=== PATIENT | female | born 1990 | race Caucasian/White ===

== ENCOUNTER 2017-01-10 12:51 | Outpatient (CLI) | payer OTHER ==
[~2017-01-10] VITALS: Ht 170.2 cm; Wt 117.0 kg
[~2017-01-10 12:51] MED LIST: METHADONE10 MG PO; NOHOMEMEDS
[2017-01-10 13:20] VITALS: BP 122/78
[2017-01-10] MEDS ORDERED: METHADONE 22 MG/1 ML PO (13:45)
[2017-01-10 15:32] LABS: ADD MIUA? YES; BILIRUBIN NEGATIVE; BLOOD NEGATIVE; GLUCOSE (STRIP) NEGATIVE; KETONES NEGATIVE; LEUKOCYTES NEGATIVE; NITRITE NEGATIVE; PROTEIN (STRIP) NEGATIVE; SPECIFIC GRAVITY 1.024 (1.000-1.030); UROBILINOGEN 0.2 MG/DL (0.2-1.0)
[2017-01-10 16:11] LABS: BACTERIA NONE SEEN /HPF; CALCIUM OXALATE CRYSTALS 3+ /HPF; EPITHELIAL CELLS RARE /HPF; MUCUS 1+ /LPF; RED BLOOD CELLS 0-5 /HPF (0-5); UCUL ADDED? NO; WHITE BLOOD CELLS 0-5 /HPF (0-5)
[2017-01-10 16:12] LABS: COLOR DK YELLOW ((YELLOW))
[2017-01-11] MEDS ORDERED: PRENATAL TABLE1 EAC3 PO (13:58)
== END 2017-01-10 17:45 | disposition home or self-care (01) ==
LOC: LDRP-OP 12:51 → 2WEST 12:52
PROVIDERS: Midwife
DX: O26.873 Cervical shortening, third trimester (principal); Z3A.32 32 weeks gestation of pregnancy
CPT/HCPCS: 59025; 81003; 82731; G0378; J0702

== ENCOUNTER 2017-01-11 12:57 | Outpatient (CLI) | payer OTHER ==
[~2017-01-11] VITALS: Ht 170.2 cm; Wt 117.3 kg
[~2017-01-11 12:57] MED LIST changes: +METHADONE 22 MG/1 ML PO
[2017-01-11 13:38] VITALS: BP 139/88
[2017-01-11] MEDS ORDERED: PRENATAL TABLE1 EAC3 PO (13:58)
== END 2017-01-11 14:50 | disposition home or self-care (01) ==
LOC: LDRP-OP 12:57 → 2WEST 12:58 → LDRP-OP 04-05 17:53
DX: O26.873 Cervical shortening, third trimester (principal); O99.323 Drug use complicating pregnancy, third trimester; F11.20 Opioid dependence, uncomplicated; O99.333 Smoking (tobacco) complicating pregnancy, third trimester; F17.200 Nicotine dependence, unspecified, uncomplicated; Z3A.32 32 weeks gestation of pregnancy
CPT/HCPCS: 59025; G0378

== ENCOUNTER 2017-01-25 12:12 | Outpatient (CLI) | payer OTHER ==
[~2017-01-25] VITALS: Ht 170.2 cm; Wt 117.0 kg
[~2017-01-25 12:12] MED LIST changes: +PRENATAL TABLE1 EAC3 PO
[2017-01-25 12:43] VITALS: BP 127/74
[2017-01-25 13:14] VITALS: BP 117/71
[2017-01-25 13:44] VITALS: BP 124/74
[2017-01-25 14:14] VITALS: BP 114/69
[2017-01-25 15:07] LABS: EOSINOPHIL (%) 2.1 % (0-5); EOSINOPHIL COUNT 0.2 K/uL (0-0.3); HEMATOCRIT 38.2 % (36.0-46.0); IMMATURE GRANULOCYTE (%) 0.7 % (0.0-0.7); IMMATURE GRANULOCYTE COUNT 0.1 K/uL; INSTRUMENT ABS NEUTROPHIL CT 7.5 K/uL; LYMPHOCYTE COUNT 2.1 K/uL (1.0-2.8); MCH 30.4 PG (29.0-34.0); MCHC 33.8 G/DL (30.0-36.0); MCV 90.1 FL (83-99); MEAN PLAT.VOLUME 10.1 uM^3 (9.5-12.4); MONOCYTE (%) 7.2 % (3-12); MONOCYTE COUNT 0.8 K/uL (0-0.8); NEUTROPHIL (%) 69.7 % (45-76); NEUTROPHIL COUNT 7.5 K/uL (1.8-6.4); PLATELET COUNT 173 K/uL (156-360); RBC DIS.WIDTH-SD 42.3 % (39-53); RED BLOOD COUNT 4.24 M/uL (3.80-5.20); WHITE BLOOD COUNT 10.7 K/uL (4.1-10.2)
[2017-01-25 15:25] LABS: ALKALINE PHOSPHATASE 137 IU/L (3-129); ANION GAP 8 MEQ/L (2-14); CHLORIDE 106 MEQ/L (99-109); GFR ESTIMATE (CALCULATED) > 59 mL/min/; GLUCOSE 139 mg/dL (70-99); POTASSIUM 3.6 MEQ/L (3.7-5.4); SAMPLE HEMOLYSIS CHECK 0; SAMPLE ICTERIC CHECK 0; SAMPLE LIPEMIA CHECK 0; SODIUM 137 MEQ/L (136-147); TOTAL BILIRUBIN 0.3 MG/DL (0.0-1.0); UREA NITROGEN (BUN) 4 mg/dL (9-23)
[2017-01-25 15:58] LABS: UR CREATININE CONCENTRATION 47.2 MG/DL
[2017-01-25 16:30] VITALS: BP 114/65
== END 2017-01-25 17:35 | disposition home or self-care (01) ==
LOC: LDRP-OP 12:12 → 2WEST 12:13 → LDRP-OP 04-05 15:10
PROVIDERS: Nurse Practitioner
DX: O26.613 Liver and biliary tract disorders in pregnancy, third trimester (principal); Z3A.32 32 weeks gestation of pregnancy; R79.89 Other specified abnormal findings of blood chemistry; O99.323 Drug use complicating pregnancy, third trimester; F11.90 Opioid use, unspecified, uncomplicated
CPT/HCPCS: 59025; 80053; 82570; 84156; 85025; 86803; G0378

== ENCOUNTER 2017-02-10 07:10 | Inpatient (IN) | payer OTHER ==
[~2017-02-10] VITALS: Ht 170.2 cm; Wt 117.3 kg
[2017-02-10] VITALS (31 sets, daily range): BP systolic 111–161; BP diastolic 62–90
[2017-02-10 09:40] LABS: EOSINOPHIL (%) 0.5 % (0-5); EOSINOPHIL COUNT 0.1 K/uL (0-0.3); IMMATURE GRANULOCYTE (%) 1.1 % (0.0-0.7); IMMATURE GRANULOCYTE COUNT 0.2 K/uL; INSTRUMENT ABS NEUTROPHIL CT 11.4 K/uL; LYMPHOCYTE COUNT 1.7 K/uL (1.0-2.8); MCH 30.4 PG (29.0-34.0); MCHC 33.6 G/DL (30.0-36.0); MCV 90.3 FL (83-99); MEAN PLAT.VOLUME 10.3 uM^3 (9.5-12.4); MONOCYTE (%) 5.8 % (3-12); MONOCYTE COUNT 0.8 K/uL (0-0.8); NEUTROPHIL (%) 80.1 % (45-76); NEUTROPHIL COUNT 11.4 K/uL (1.8-6.4); RBC DIS.WIDTH-SD 42.8 % (39-53); RED BLOOD COUNT 4.87 M/uL (3.80-5.20)
[2017-02-10 09:54] LABS: PLATELET COUNT 239 K/uL (156-360); WHITE BLOOD COUNT 14.2 K/uL (4.1-10.2)
[2017-02-10 12:20] LABS: AMPHETAMINES QUANT VALUE 0 NG/ML; BARBITUATES QUANT VALUE 0 NG/ML; BENZODIAZEPINES QUANT VALUE 0 NG/ML; BENZODIAZEPINES, URINE SCREEN Negative (200 ng/mL); OPIATES QUANTITATIVE VALUE 0 NG/ML; PHENCYCLIDINE QUANT VALUE 0 NG/ML
[2017-02-10] MEDS ORDERED: IBUPROFEN800 MG PO (21:14)
[2017-02-11 03:41] VITALS: BP 143/88
[2017-02-11 08:00] LABS: EOSINOPHIL (%) 0.6 % (0-5); EOSINOPHIL COUNT 0.1 K/uL (0-0.3); HEMATOCRIT 32.6 % (36.0-46.0); IMMATURE GRANULOCYTE (%) 0.6 % (0.0-0.7); IMMATURE GRANULOCYTE COUNT 0.1 K/uL; INSTRUMENT ABS NEUTROPHIL CT 8.8 K/uL; LYMPHOCYTE COUNT 2.7 K/uL (1.0-2.8); MCH 30.9 PG (29.0-34.0); MCHC 33.4 G/DL (30.0-36.0); MCV 92.4 FL (83-99); MEAN PLAT.VOLUME 10.9 uM^3 (9.5-12.4); MONOCYTE (%) 9.8 % (3-12); MONOCYTE COUNT 1.3 K/uL (0-0.8); NEUTROPHIL (%) 67.8 % (45-76); NEUTROPHIL COUNT 8.8 K/uL (1.8-6.4); PLATELET COUNT 210 K/uL (156-360); RBC DIS.WIDTH-CV 13.2 % (11.8-14.6); RBC DIS.WIDTH-SD 44.2 % (39-53)
[2017-02-11 08:15] LABS: RED BLOOD COUNT 3.53 M/uL (3.80-5.20)
[2017-02-11 08:57] VITALS: BP 144/88
[2017-02-11 23:25] VITALS: BP 130/69
[2017-02-12 07:51] VITALS: BP 141/88
[2017-02-12 15:13] VITALS: BP 144/87
== END 2017-02-12 18:43 | disposition home or self-care (01) | DRG 774 ==
LOC: LDRP-OP 07:10 → 2WEST 07:11 → LDRP-OP 04-05 17:42
PROVIDERS: Midwife
PROC: 0UQMXZZ Repair Vulva, External Approach (ICD-10-PCS; principal; 2017-02-10)
PROC: 3E0S3CZ (ICD-10-PCS; principal; 2017-02-10)
PROC: 10E0XZZ Delivery of Products of Conception, External Approach (ICD-10-PCS; principal; 2017-02-10)
PROC: 0KQM0ZZ Repair Perineum Muscle, Open Approach (ICD-10-PCS; principal; 2017-02-10)
PROC: 00HU33Z Insertion of Infusion Device into Spinal Canal, Percutaneous Approach (ICD-10-PCS; principal; 2017-02-10)
DX: O70.1 Second degree perineal laceration during delivery (principal); O71.82 Other specified trauma to perineum and vulva; O42.913 Preterm premature rupture of membranes, unspecified as to length of time between rupture and onset of labor, third trimester; Z3A.36 36 weeks gestation of pregnancy; Z37.0 Single live birth; O75.89 Other specified complications of labor and delivery; E66.9 Obesity, unspecified; Z68.31 Body mass index [BMI] 31.0-31.9, adult; O99.211 Obesity complicating pregnancy, first trimester; Z68.30 Body mass index [BMI] 30.0-30.9, adult; O99.324 Drug use complicating childbirth; F11.20 Opioid dependence, uncomplicated; F12.10 Cannabis abuse, uncomplicated; B18.2 Chronic viral hepatitis C; O26.893 Other specified pregnancy related conditions, third trimester; O98.413 Viral hepatitis complicating pregnancy, third trimester; O99.334 Smoking (tobacco) complicating childbirth; F17.200 Nicotine dependence, unspecified, uncomplicated; O76 Abnormality in fetal heart rate and rhythm complicating labor and delivery
CPT/HCPCS: 80306 90; 85025; 87653; C1755; J3010; J3370; J7120